=== PATIENT | male | born 1955 | race Caucasian/White ===

== ENCOUNTER 2019-10-04 10:23 | Day surgery (SDC) | payer BC ==
[~2019-10-04] VITALS: Ht 177.8 cm; Wt 84.0 kg
[2019-10-04] VITALS (8 sets, daily range): BP systolic 126–140; BP diastolic 56–89
[~2019-10-04 10:23] MED LIST: ceFAZolin 2gm in dextrose, iso 50 ML IV ONE; famotidine 20mg tablet PO ONE; ringers solution, lacted 1,000 ML IV SCH
[2019-10-04] MEDS ORDERED: NO HOME MEDS (11:19)
[2019-10-04 12:00] LABS: BASOPHILS % (AUTO) 0.7 % (0-1); EOSINOPHILS # (AUTO) 0.2 X10'3 (0-0.9); LYMPHOCYTES # (AUTO) 1.2 X10'3 (1.1-4.8); LYMPHOCYTES % (AUTO) 26.7 % (21-51); MEAN CORPUSCULAR HEMOGLOBIN 31.2 PG (27.0-31.0); MEAN CORPUSCULAR HGB CONC 33.1 g/dL (33.0-36.5); MEAN CORPUSCULAR VOLUME 94.2 FL (78-98); MEAN PLATELET VOLUME 9.5 FL (7.4-10.4); MONOCYTES # (AUTO) 0.4 X10'3 (0-0.9); MONOCYTES % (AUTO) 9.8 % (2-12); NEUTROPHILS # (AUTO) 2.6 X10'3 (1.8-7.7); NEUTROPHILS % (AUTO) 58.8 % (42-75); PRE OP HEMATOCRIT 43.5 % (42.0-52.0); PRE OP HEMOGLOBIN 14.4 g/dL (14.0-17.9); PRE OP PLATELET COUNT 202 X10'3 (140-440); RED BLOOD COUNT 4.61 X10'6 (4.70-6.10); RED CELL DISTRIBUTION WIDTH 12.4 % (11.5-14.5)
[2019-10-04 12:11] LABS: ALBUMIN 3.7 G/DL (3.4-5.0); ALBUMIN/GLOBULIN RATIO 1.1 (1.1-1.5); ALKALINE PHOSPHATASE 91 IU/L (46-116); BLOOD UREA NITROGEN 24 MG/DL (7-18); BUN/CREATININE RATIO 22.4 (5.4-32.0); CALCIUM 8.6 MG/DL (8.5-10.1); CHLORIDE 106 MMOL/L (99-107); CREATININE 1.07 MG/DL (0.60-1.10); PRE OP ALT 17 U/L (30-65); PRE OP ANION GAP 9 (8-16); PRE OP AST 19 U/L (10-37); PRE OP GLUCOSE 90 MG/DL (70-104); PRE OP SODIUM 142 MMOL/L (135-145); TOTAL CARBON DIOXIDE 26.9 MMOL/L (24-32); TOTAL PROTEIN 7.1 G/DL (6.4-8.2); eGFR 70 ML/MIN
[2019-10-04] MEDS ORDERED: fentaNYL/PF 50MCG/1 ML 2ML syringe ONE (14:15)
[2019-10-04] MEDS ORDERED: dexamethasone sod phosphate 4mg/ml inj. ONE (14:15)
[2019-10-04] MEDS ORDERED: ondansetron/PF 4mg/2ml inj ONE (14:16)
[2019-10-04] MEDS ORDERED: propofol inj 20 ML IV ONE (14:16)
[2019-10-04] MEDS ORDERED: LIDOcaine 2% (20mg/ml) 5ml vial ONE (14:16)
[2019-10-04] MEDS ORDERED: morphine 4 MG/ML inj SYRINge IV PRN (14:20)
[2019-10-04] MEDS ORDERED: hydrALAZINE 20mg/ml inj. IV PRN (14:20)
[2019-10-04] MEDS ORDERED: labetalol 20mg/4ml (5mg/ml) syringe IV PRN (14:20)
[2019-10-04] MEDS ORDERED: fentaNYL/PF 50MCG/1 ML 2ML syringe IV PRN ×2 (14:20)
[2019-10-04] MEDS ORDERED: ringers solution, lacted 1,000 ML IV SCH (14:20)
[2019-10-04] MEDS ORDERED: ondansetron/PF 4mg/2ml inj IV PRN (14:20)
[2019-10-04] MEDS ORDERED: morphine 2 MG/ML inj. syringe IV PRN (14:20)
[2019-10-04] MEDS ORDERED: BUPIVAcaine/PF 2.5 mg/ml (0.25%) 30ml vial ONE (14:38)
[2019-10-04] MEDS ORDERED: mupirocin 2% ointment 22GM ONE (14:38)
[2019-10-04] MEDS ORDERED: sevoflurane 250ml liquid IH ONE (15:15)
--- NOTE | 2019-10-04 17:15 | NUR ---
Pt discharged by wheelchair to vehicle without incident after IV dc'd, patient states pain still tolerable and does not want pain meds. Pt had all belongings confirmed and returned to him. Pt and verbalised understanding of all DC information.
== END 2019-10-04 17:15 | disposition home or self-care (01) ==
LOC: PAS 10:23
PROVIDERS: ATTEND Surgery
DX: R59.0 Localized enlarged lymph nodes (principal); G47.33 Obstructive sleep apnea (adult) (pediatric); Z85.51 Personal history of malignant neoplasm of bladder; Z72.89 Other problems related to lifestyle; Z87.891 Personal history of nicotine dependence; Z79.899 Other long term (current) drug therapy; Z81.8 Family history of other mental and behavioral disorders
CPT/HCPCS: 36415; 38500; 80053; 85025; 93005; J1100; J2001; J2405; J2704; J3010; J3490; J7120; A4215; A4618; A7000

== ENCOUNTER 2019-10-14 16:40 | Emergency (ER) | payer BC ==
[~2019-10-14] VITALS: Ht 177.8 cm; Wt 84.0 kg
[~2019-10-14 16:40] MED LIST changes: +LIDOcaine 1% W/epiNEPHrine 1:100,000 20ml vial ONE; +NO HOME MEDS; -ceFAZolin 2gm in dextrose, iso 50 ML IV ONE; -famotidine 20mg tablet PO ONE; -ringers solution, lacted 1,000 ML IV SCH
[2019-10-14 16:42] VITALS: BP 133/81
[2019-10-14] MEDS ORDERED: TETanus/Pertussis (Acell)/Diphther VAC/PF (Tdap-Adult) 0.5ml syringe IMVAC ONE (17:35)
== END 2019-10-14 18:00 | disposition home or self-care (01) ==
LOC: ER 16:42
DX: S61.011A Laceration without foreign body of right thumb without damage to nail, initial encounter (principal); W26.8XXA Contact with other sharp object(s), not elsewhere classified, initial encounter; Y93.89 Activity, other specified; Y92.89 Other specified places as the place of occurrence of the external cause; Y99.8 Other external cause status
CPT/HCPCS: 12001; 90471; 90715; 99283

== ENCOUNTER 2019-11-22 10:35 | Day surgery (SDC) | payer BC ==
[2019-11-22] VITALS (7 sets, daily range): BP systolic 115–144; BP diastolic 58–76
[~2019-11-22] VITALS: Ht 177.8 cm; Wt 84.0 kg
[~2019-11-22 10:35] MED LIST changes: -LIDOcaine 1% W/epiNEPHrine 1:100,000 20ml vial ONE
[2019-11-22] MEDS ORDERED: famotidine 20mg tablet PO ONE (10:40)
[2019-11-22] MEDS ORDERED: ceFAZolin 2gm in dextrose, iso 50 ML IV ONE (10:40)
[2019-11-22] MEDS ORDERED: ringers solution, lacted 1,000 ML IV ONE (10:40)
[2019-11-22 11:20] LABS: CLARITY,URINE CLOUDY (Clear); COLOR,URINE YELLOW (Yellow); GLUCOSE, URINE NEGATIVE (Neg); KETONES,URINE NEGATIVE (Neg); LEUKOCYTE ESTERASE ,URINE TRACE (Neg); NITRITES, URINE NEGATIVE (Neg); OCCULT BLOOD,URINE TRACE-LYSED (Neg); PH,URINE 6.5 (4.8-8.0); PROTEIN,URINE TRACE mg/dl (Neg); UROBILINOGEN,URINE 0.2 E.U/dL (0.2-1.0)
[2019-11-22 11:28] LABS: UA COLLECTION TYPE CLN CATCH MIDSTREAM
[2019-11-22 11:29] LABS: HYALINE CASTS 0-3 /LPF (NEGATIVE); MUCUS STRANDS FEW /LPF (Neg); SQUAMOUS EPITHELIAL CELL,UR FEW /LPF (FEW)
[2019-11-22 11:30] LABS: BACTERIA,URINE 2+ /HPF (Neg); WBC CLUMPS,URINE MANY /HPF (NEGATIVE); WBC,URINE 50-100 /HPF (0-4)
[2019-11-22 11:34] LABS: BASOPHILS % (AUTO) 0.7 % (0-1); EOSINOPHILS # (AUTO) 0.3 X10'3 (0-0.9); EOSINOPHILS % (AUTO) 5.5 % (0-6); LYMPHOCYTES # (AUTO) 1.2 X10'3 (1.1-4.8); LYMPHOCYTES % (AUTO) 24.5 % (21-51); MEAN CORPUSCULAR HEMOGLOBIN 31.7 PG (27.0-31.0); MEAN CORPUSCULAR VOLUME 93.2 FL (78-98); MONOCYTES # (AUTO) 0.5 X10'3 (0-0.9); MONOCYTES % (AUTO) 10.6 % (2-12); NEUTROPHILS # (AUTO) 2.8 X10'3 (1.8-7.7); NEUTROPHILS % (AUTO) 58.7 % (42-75); PRE OP HEMATOCRIT 43.1 % (42.0-52.0); PRE OP HEMOGLOBIN 14.6 g/dL (14.0-17.9); PRE OP PLATELET COUNT 204 X10'3 (140-440); RED BLOOD COUNT 4.62 X10'6 (4.70-6.10); RED CELL DISTRIBUTION WIDTH 12.6 % (11.5-14.5)
[2019-11-22 11:35] LABS: ALBUMIN 3.6 G/DL (3.4-5.0); ALKALINE PHOSPHATASE 100 IU/L (46-116); BLOOD UREA NITROGEN 23 MG/DL (7-18); BUN/CREATININE RATIO 20.5 (5.4-32.0); CALCIUM 8.6 MG/DL (8.5-10.1); CHLORIDE 108 MMOL/L (99-107); CREATININE 1.12 MG/DL (0.60-1.10); PRE OP ALT 20 U/L (30-65); PRE OP ANION GAP 10 (8-16); PRE OP AST 16 U/L (10-37); PRE OP BILIRUB, TOTAL 0.8 MG/DL (0.0-1.0); PRE OP GLUCOSE 99 MG/DL (70-104); PRE OP POTASSIUM 4.2 MMOL/L (3.4-5.1); PRE OP SODIUM 142 MMOL/L (135-145); TOTAL CARBON DIOXIDE 24.4 MMOL/L (24-32); TOTAL PROTEIN 7.2 G/DL (6.4-8.2); eGFR 66 ML/MIN
[2019-11-22] MEDS ORDERED: BUPIVAcaine/PF 2.5 mg/ml (0.25%) 30ml vial ONE (15:12)
[2019-11-22] MEDS ORDERED: ceFAZolin 1000mg inj ONE (15:12)
[2019-11-22] MEDS ORDERED: propofol inj 20 ML IV ONE (15:25)
[2019-11-22] MEDS ORDERED: fentaNYL/PF 50MCG/1 ML 2ML syringe ONE (15:25)
[2019-11-22] MEDS ORDERED: midazolam 2 mg/2 ml injection ONE (15:25)
[2019-11-22] MEDS ORDERED: sevoflurane 250ml liquid IH ONE (15:27)
[2019-11-22] MEDS ORDERED: ringers solution, lacted 1,000 ML IV SCH (15:28)
[2019-11-22] MEDS ORDERED: meperidine/PF 25mg/ml syringe IV PRN ×3 (15:30)
[2019-11-22] MEDS ORDERED: proCHLORperazine 10 MG/2 ml inj IV PRN (15:30)
[2019-11-22] MEDS ORDERED: morphine 4 MG/ML inj SYRINge IV PRN (15:30)
[2019-11-22] MEDS ORDERED: ondansetron/PF 4mg/2ml inj IV PRN (15:30)
[2019-11-22] MEDS ORDERED: morphine 2 MG/ML inj. syringe IV PRN (15:30)
--- NOTE | 2019-11-22 16:12 | NUR ---
PATIENT WITH WOUND VAC TO LEFT INGUINAL SIDE LOW CONTINOUS SUCTION AND 125 MM HG. DENIES PAIN. VSS. 20G PIV IN LEFT UE RUNNING LR AT 100. Addendum: 11/22/19 at 1642 by Levi Duval RN, RN Amended: Links added.
--- NOTE | 2019-11-22 17:02 | NUR ---
ALL DC CRITERIA FOR HOME HAS BEEN ACHIEVED. PATIENT WITH VAC TO LEFT INGUINAL SITE. PATIENT DOES NOT WISH FOR PAIN MEDS AT THIS TIME. DRESSED. VSS. TRANSFERED SAFELY TO WHEELCHAIR WHERE HE WAS TAKEN HOME BY SPOUSE. ALL DC INSTRUCTIONS COVERED WITH PATIENT AND ALL QUESTIONS HAVE BEEN ANSWERED. Addendum: 11/22/19 at 1714 by Levi Duval RN, RN Amended: Links added.
== END 2019-11-22 17:02 | disposition home or self-care (01) ==
LOC: PAS 10:35
PROVIDERS: ATTEND Surgery
DX: L76.34 Postprocedural seroma of skin and subcutaneous tissue following other procedure (principal); Z85.51 Personal history of malignant neoplasm of bladder; Z79.899 Other long term (current) drug therapy; Z72.89 Other problems related to lifestyle; Z87.891 Personal history of nicotine dependence; Z98.890 Other specified postprocedural states
CPT/HCPCS: 10140; 36415; 80053; 81001; 85025; 87088; J0690; J2250; J2704; J3010; J3490; J7120; A4215; A4618; A6550; A7000

== ENCOUNTER 2019-11-28 08:33 | Day surgery (SDC) | payer BC ==
[2019-11-28] MEDS ORDERED: LIDOcaine 2% 5ml jelly ONE ×2 (09:14)
== END 2019-11-28 10:10 | disposition home or self-care (01) ==
LOC: WOUND CARE 08:33
PROVIDERS: ATTEND Nurse Practitioner
DX: T81.31XA Disruption of external operation (surgical) wound, not elsewhere classified, initial encounter (principal); G47.33 Obstructive sleep apnea (adult) (pediatric); Z85.51 Personal history of malignant neoplasm of bladder; Z87.891 Personal history of nicotine dependence; Z79.899 Other long term (current) drug therapy; Z98.890 Other specified postprocedural states; Y92.238 Other place in hospital as the place of occurrence of the external cause; Y83.8 Other surgical procedures as the cause of abnormal reaction of the patient, or of later complication, without mention of misadventure at the time of the procedure
CPT/HCPCS: 97597

== ENCOUNTER 2019-12-08 10:58 | Day surgery (SDC) | payer BC ==
[2019-12-08] MEDS ORDERED: LIDOcaine 2% 5ml jelly ONE (11:33)
== END 2019-12-08 11:59 | disposition home or self-care (01) ==
LOC: WOUND CARE 10:58
PROVIDERS: ATTEND Nurse Practitioner
DX: T81.31XD Disruption of external operation (surgical) wound, not elsewhere classified, subsequent encounter (principal); G47.33 Obstructive sleep apnea (adult) (pediatric); Z85.51 Personal history of malignant neoplasm of bladder; Z87.891 Personal history of nicotine dependence; Z79.899 Other long term (current) drug therapy; Z98.890 Other specified postprocedural states; Y83.8 Other surgical procedures as the cause of abnormal reaction of the patient, or of later complication, without mention of misadventure at the time of the procedure
CPT/HCPCS: 97597

== ENCOUNTER 2019-12-28 11:20 | Day surgery (SDC) | payer BC ==
[2019-12-28] MEDS ORDERED: LIDOcaine 2% 5ml jelly ONE (11:39)
== END 2019-12-28 11:48 | disposition home or self-care (01) ==
LOC: WOUND CARE 11:20
PROVIDERS: ATTEND Nurse Practitioner
DX: T81.31XD Disruption of external operation (surgical) wound, not elsewhere classified, subsequent encounter (principal); G47.33 Obstructive sleep apnea (adult) (pediatric); Z85.51 Personal history of malignant neoplasm of bladder; Z87.891 Personal history of nicotine dependence; Z79.899 Other long term (current) drug therapy; Z98.890 Other specified postprocedural states; Y83.8 Other surgical procedures as the cause of abnormal reaction of the patient, or of later complication, without mention of misadventure at the time of the procedure
CPT/HCPCS: 97597

== ENCOUNTER 2020-01-11 10:18 | Day surgery (SDC) | payer BC | END 2020-01-11 10:37 | disposition home or self-care (01) | LOC: WOUND CARE 10:18 | PROVIDERS: ATTEND Nurse Practitioner | DX: T81.31XD Disruption of external operation (surgical) wound, not elsewhere classified, subsequent encounter (principal); G47.33 Obstructive sleep apnea (adult) (pediatric); Z85.51 Personal history of malignant neoplasm of bladder; Z87.891 Personal history of nicotine dependence; Z79.899 Other long term (current) drug therapy; Z98.890 Other specified postprocedural states; Y83.8 Other surgical procedures as the cause of abnormal reaction of the patient, or of later complication, without mention of misadventure at the time of the procedure | CPT/HCPCS: 97597 ==

== ENCOUNTER → 2023-08-11 | Outpatient (CLI) | payer BC | END | disposition home or self-care (01) | LOC: RAD 09:48 | PROVIDERS: ATTEND Family Medicine | DX: M16.0 Bilateral primary osteoarthritis of hip (principal); M25.551 Pain in right hip | CPT/HCPCS: 73502 ==

== ENCOUNTER 2023-12-20 10:33 | Emergency (ER) | payer BC ==
[~2023-12-20] VITALS: Ht 177.8 cm; Wt 84.5 kg
[2023-12-20 11:10] LABS: ALANINE AMINOTRANSFERASE 56 U/L (12-78); ALBUMIN 2.9 G/DL (3.4-5.0); ALBUMIN/GLOBULIN RATIO 0.6 (1.1-1.5); ALKALINE PHOSPHATASE 169 IU/L (46-116); AMYLASE 20 U/L (25-115); ANION GAP 10 (8-16); ASPARTATE AMINO TRANSFERASE 42 U/L (10-37); BILIRUBIN,TOTAL 1.1 MG/DL (0.1-1.0); BLOOD UREA NITROGEN 14 MG/DL (7-18); BUN/CREATININE RATIO 13.2 (10.0-20.0); CALCIUM 9.6 MG/DL (8.5-10.1); CHLORIDE 95 MMOL/L (99-107); CREATININE 1.06 MG/DL (0.60-1.10); GLUCOSE 100 MG/DL (70-104); LIPASE 25 U/L (16-77); POTASSIUM 3.6 MMOL/L (3.5-5.1); SODIUM 130 MMOL/L (135-145); TOTAL PROTEIN 8.1 G/DL (6.4-8.2); eCRCL 71 ML/MIN; eGFR 70 ML/MIN
[2023-12-20 11:20] LABS: BILIRUBIN,URINE NEGATIVE (Neg); CLARITY,URINE TURBID (Clear); COLOR,URINE YELLOW (Yellow); GLUCOSE, URINE NEGATIVE (Neg); KETONES,URINE 15 mg/dl (Neg); LEUKOCYTE ESTERASE ,URINE NEGATIVE (Neg); NITRITES, URINE NEGATIVE (Neg); OCCULT BLOOD,URINE SMALL (Neg); PH,URINE 7.5 (4.8-8.0); PROTEIN,URINE 100 mg/dl (Neg); UROBILINOGEN,URINE 0.2 E.U/dL (0.2-1.0)
[2023-12-20 11:26] LABS: UA COLLECTION TYPE CLN CATCH MIDSTREAM
[2023-12-20 11:28] LABS: MUCUS STRANDS FEW /LPF (Neg)
[2023-12-20 11:30] LABS: WBC,URINE 20-30 /HPF (0-4)
[2023-12-20 11:31] LABS: BACTERIA,URINE 1+ /HPF (Neg); RBC,URINE 0-2 /HPF (0-2)
[2023-12-20 11:34] LABS: SQUAMOUS EPITHELIAL CELL,UR FEW /LPF (FEW)
[2023-12-20 12:55] LABS: HEMATOCRIT 39.4 % (43.5-53.7); HEMOGLOBIN 13.3 G/DL (12.5-16.3); MEAN CORPUSCULAR HEMOGLOBIN 31.5 PG (27-31.2); MEAN CORPUSCULAR HGB CONC 33.8 % (32-36); MEAN CORPUSCULAR VOLUME 93.3 FL (81-97); PLATELET COUNT 263 X10'3 (130-400); RED BLOOD COUNT 4.22 X10'6 (4.30-5.90); RED CELL DISTRIBUTION WIDTH 12.1 % (11-16); WHITE BLOOD COUNT 8.3 X10'3 (4.5-11.0)
[2023-12-20 12:56] LABS: BASOPHILS % 0 % (0-2); EOSINOPHILS % (AUTO) 0 % (0-5); LYMPHOCYTES # (AUTO) 0.6 X10'3 (0.6-4.1); LYMPHOCYTES % 7 % (24-44); MONOCYTES # (AUTO) 0.9 X10'3 (0-0.9); MONOCYTES % 11 % (0-12); NEUTROPHILS # (AUTO) 6.7 X10'3 (>=1.4); SEGMENTED NEUTROPHILS % 81 % (36-66)
[2023-12-20] MEDS ORDERED: iohexol 300mg/ml 100ml inj. ONE (15:30)
[2023-12-20 17:43] VITALS: BP 132/76; PULSE 92; RESP 16; TEMP 98.8; O2SAT 97
== END 2023-12-20 17:44 | disposition home or self-care (01) ==
LOC: ER 10:34
DX: K80.20 Calculus of gallbladder without cholecystitis without obstruction (principal); Z20.822 Contact with and (suspected) exposure to COVID-19; R16.0 Hepatomegaly, not elsewhere classified; R19.00 Intra-abdominal and pelvic swelling, mass and lump, unspecified site
CPT/HCPCS: 36415; 71045; 71260; 74177; 76700; 80053; 81001; 82150; 83690; 85025; 87088; 87811; 93005; 99285; Q9967